=== PATIENT | male | born 1985 | race African-American/Black ===

== ENCOUNTER 2018-10-18 10:03 | Emergency (ER) | payer MEDICAID ==
[~2018-10-18] VITALS: Ht 175.3 cm; Wt 66.7 kg
[2018-10-18] MEDS ORDERED: Isovue-370 150ml vial INJ PRN (10:15)
[2018-10-18] MEDS ORDERED: DiphenhydrAMINE 50mg/ml Inj IVP ONE (10:30)
[2018-10-18] MEDS ORDERED: Ketorolac 30mg Inj IV ONE (10:30)
[2018-10-18 10:53] LABS: BASOPHILS % (AUTO) 1.3 % (0.0-2.0); EOSINOPHILS % (AUTO) 5.3 % (0.0-3.0); HEMATOCRIT 45.5 % (42.0-52.0); HEMOGLOBIN 15.2 G/DL (14.2-18.0); MEAN CORPUSCULAR VOLUME 89 FL (80-99); MONOCYTES % (AUTO) 8.6 % (1.0-10.0); NEUTROPHILS % (AUTO) 47.8 % (45.0-75.0); PLATELET COUNT 288 K/UL (150-450); RED BLOOD COUNT 5.11 M/UL (4.70-6.10); RED CELL DISTRIBUTION WIDTH 12.9 % (11.6-14.8); WHITE BLOOD COUNT 5.5 K/UL (4.8-10.8)
[2018-10-18 10:58] VITALS: BP 109/73
--- NOTE | 2018-10-18 10:58 | NUR ---
ED Nurse Note:pt. came from home with c/o headache and neck/back pain after boxes felt on him last tuesday, A/Ox4 ambulatory, VSS, blood sent to l;abs, IV fluids and meds given
[2018-10-18 11:13] LABS: ANION GAP 8 mmol/L (5-15); BLOOD UREA NITROGEN 9 mg/dL (7-18); CALCIUM 9.1 MG/DL (8.5-10.1); CARBON DIOXIDE 29 MMOL/L (21-32); CHLORIDE 102 MMOL/L (98-107); CREATININE 1.2 MG/DL (0.55-1.30); POTASSIUM 3.9 MMOL/L (3.5-5.1); SODIUM 139 MMOL/L (136-145)
[2018-10-18 11:22] LABS: ALANINE AMINOTRANSFERASE 28 U/L (12-78); ALBUMIN 3.9 G/DL (3.4-5.0); ALBUMIN/GLOBULIN RATIO 1.3 (1.0-2.7); ALKALINE PHOSPHATASE 56 U/L (46-116); ASPARTATE AMINO TRANSFERASE 30 U/L (15-37); BILIRUBIN,TOTAL 1.1 MG/DL (0.2-1.0)
--- NOTE | 2018-10-18 11:27 | NUR ---
ED Nurse Note:pt. was taken for CT scan
[2018-10-18 11:47] LABS: BILIRUBIN,DIRECT 0.2 MG/DL (0.0-0.3)
--- NOTE | 2018-10-18 12:17 | NUR ---
ED Nurse Note:pt. came back from CT scan, urine sent to labs
--- NOTE | 2018-10-18 14:12 | Diagnostic Imaging Report ---
Indication: Pain and headache Technique: Noncontrast CT of the head was performed utilizing automated exposure control. Axial, coronal and sagittal reformats are presented. Subsequently contrast was injected and CT angiogram of the head was performed utilizing automated exposure control. Axial, sagittal and coronal reconstructions were obtained. Maximal intensity projections and 3-D volumetric reconstructions were also performed. CT dose: Total DLP 5121.38 mGycm; CTDI vol 70.38,51,70.38 mGy Comparison: None FINDINGS: Noncontrast CT of the head: There is no acute intracranial hemorrhage, mass effect, midline shift or cortical edema. The ventricles, cisterns and sulci are within normal limits for age. Visualized mastoid air cells and paranasal sinuses are unremarkable. There is no depressed calvarial fracture. Sinuses are clear. Very mild paranasal sinus disease is noted with mucosal thickening and partial opacification of some bilateral ethmoid air cells. Globes appear symmetric. Imaged orbits grossly unremarkable. CT angiogram of the head: Noted that angiogram is limited due to suboptimal timing with venous contamination. The bilateral common carotid arteries and major branch vessels of the bilateral anterior and middle cerebral arteries are patent and without evidence of significant stenosis, occlusion or aneurysm. Bilateral vertebral arteries are patent and normal in caliber and without evidence of stenosis, occlusion or aneurysm. A prominent vessel is noted adjacent to portions of the basilar artery which appears to drain into the cavernous sinus and this may represent a prominent vein in the basilar plexus. IMPRESSION: Noncontrast CT head: No evidence of acute intracranial hemorrhage, mass effect, midline shift or CT evidence of acute territorial infarct. CT angiogram of the head: Angiogram limited due to suboptimal timing with venous contamination. Intracranial carotid and vertebral arteries without evidence of significant stenosis, occlusion or dissection. [place] is patent. No branch vessel significant stenosis, occlusion or aneurysm. Prominent vascular structure adjacent to portions of the basilar vein and seemingly draining into the left cavernous sinus which may represent a prominent vein in the basilar plexus. Possibility of arterial variant is not entirely excluded and follow-up either repeat CTA with better contrast timing or perhaps MR angiogram of the head can be obtained for better characterization. The CT scanner at [facility] is accredited by the [employer] and the scans are performed using protocols designed to limit radiation exposure to as low as reasonably achievable to attain images of sufficient resolution adequate for diagnostic evaluation.
--- NOTE | 2018-10-18 14:20 | Emergency Room Report ---
History of Present Illness General Chief Complaint: Headache Source: Patient Present Illness HPI The patient states that 4 days ago he was moving boxes and a large stack of heavy boxes fell onto his head. He states he did try to move and twist out of the way and felt a pull in the right side of his low back. He states that since that time he has also had a severe headache. He states it's been intolerable. He does have a history of migraines. He states that this is similar. He denies neck pain. He denies weakness. He denies tingling or numbness. He denies blurry vision. He has no other complaints. Allergies: Coded Allergies: No Known Allergies (Unverified , 10/18/18) Patient History Past Medical History: see triage record, asthma, migraines Social History: Reports: smoking, alcohol use, drug use Reviewed Nursing Documentation: PMH: Agreed; PSxH: Agreed Nursing Documentation-PM Past Medical History: No History, Except For Hx Asthma: Yes Review of Systems All Other Systems: negative except mentioned in HPI Physical Exam Vital Signs Date Time Temp Pulse Resp B/P (MAP) Pulse Ox O2 Delivery O2 Flow Rate FiO2 10/18/18 10:06 98.2 105 16 109/73 95 Room Air Sp02 EP Interpretation: reviewed, normal General Appearance: no apparent distress, alert, GCS 15, non-toxic Head: normocephalic, atraumatic Eyes: bilateral eye normal inspection, bilateral eye PERRL ENT: hearing grossly normal, normal pharynx, no angioedema, normal voice Neck: full range of motion, supple/symm/no masses Respiratory: chest non-tender, lungs clear, normal breath sounds, no respiratory distress, no retraction, no accessory muscle use, speaking full sentences Cardiovascular #1: regular rate, rhythm, no edema Gastrointestinal: normal bowel sounds, non tender, soft, non-distended, no guarding, no rebound Rectal: deferred Musculoskeletal: gait/station normal, normal range of motion, tender - TTP along the paraspinal m. of the Lumbar and T-spine on the Right. Neurologic: alert, oriented x3, responsive, motor strength/tone normal, sensory intact, speech normal Psychiatric: judgement/insight normal, memory normal, mood/affect normal, no suicidal/homicidal ideation Skin: normal color, no rash, warm/dry, well hydrated Medical Decision Making Diagnostic Impression: Primary Impression: Headache Additional Impression: Muscle spasm ER Course This patient presents with headache and muscle spasm,. He was treated as a migraine and did have significant relief of his symptoms. I was concerned about the mechanism of trauma in this patient. He had multiple heavy moving boxes fall on to his head and back. I felt that I should rule out an intracranial bleed and a vascular injury such as a vertebral artery dissection. Overall, the patient's neurologic exam was normal. I obtained a CT of the head, CTA of the brain and neck. There were no abnormalities identified. Overall, the patient's evaluation is reassuring. Migraine headache was aborted in the emergency department. I will give the patient ibuprofen and a muscle relaxant for his muscle spasm in his back. At this time, I did not identify an emergency medical condition. The patient is given close return precautions and follow-up instructions. Laboratory Tests Test 10/18/18 10:30 10/18/18 12:05 White Blood Count 5.5 K/UL (4.8-10.8) Red Blood Count 5.11 M/UL (4.70-6.10) Hemoglobin 15.2 G/DL (14.2-18.0) Hematocrit 45.5 % (42.0-52.0) Mean Corpuscular Volume 89 FL (80-99) Mean Corpuscular Hemoglobin 29.7 PG (27.0-31.0) Mean Corpuscular Hemoglobin Concent 33.3 G/DL (32.0-36.0) Red Cell Distribution Width 12.9 % (11.6-14.8) Platelet Count 288 K/UL (150-450) Mean Platelet Volume 5.9 FL (6.5-10.1) L Neutrophils (%) (Auto) 47.8 % (45.0-75.0) Lymphocytes (%) (Auto) 37.0 % (20.0-45.0) Monocytes (%) (Auto) 8.6 % (1.0-10.0) Eosinophils (%) (Auto) 5.3 % (0.0-3.0) H Basophils (%) (Auto) 1.3 % (0.0-2.0) Prothrombin Time 10.3 SEC (9.30-11.50) Prothrombin Time INR 1.0 (0.9-1.1) PTT 27 SEC (23-33) Sodium Level 139 MMOL/L (136-145) Potassium Level 3.9 MMOL/L (3.5-5.1) Chloride Level 102 MMOL/L (98-107) Carbon Dioxide Level 29 MMOL/L (21-32) Anion Gap 8 mmol/L (5-15) Blood Urea Nitrogen 9 mg/dL (7-18) Creatinine 1.2 MG/DL (0.55-1.30) Estimate Glomerular Filtration Rate > 60 mL/min (>60) Glucose Level 105 MG/DL (74-106) Calcium Level 9.1 MG/DL (8.5-10.1) Total Bilirubin 1.1 MG/DL (0.2-1.0) H Direct Bilirubin 0.2 MG/DL (0.0-0.3) Aspartate Amino Transferase (AST) 30 U/L (15-37) Alanine Aminotransferase (ALT) 28 U/L (12-78) Alkaline Phosphatase 56 U/L (46-116) Total Protein 7.0 G/DL (6.4-8.2) Albumin 3.9 G/DL (3.4-5.0) Globulin 3.1 g/dL Albumin/Globulin Ratio 1.3 (1.0-2.7) Urine Opiates Screen Negative (NEGATIVE) Urine Barbiturates Screen Negative (NEGATIVE) Phencyclidine (PCP) Screen Negative (NEGATIVE) Urine Amphetamines Screen Positive (NEGATIVE) H Urine Benzodiazepines Screen Negative (NEGATIVE) Urine Cocaine Screen Negative (NEGATIVE) Urine Marijuana (THC) Screen Positive (NEGATIVE) H CT/MRI/US Diagnostic Results CT/MRI/US Diagnostic Results : Imaging Test Ordered: CT head, CTA brain, CTA neck, CT c-spine Impression No acute abnormalities identified. Please see official reports in electronic medical record. Last Vital Signs Date Time Temp Pulse Resp B/P (MAP) Pulse Ox O2 Delivery O2 Flow Rate FiO2 10/18/18 11:27 98.2 10/18/18 10:58 103 16 109/73 95 Room Air Status: improved Disposition: HOME, SELF-CARE Condition: Improved Referrals: [facility],REFERR[facility] (PCP) Patient Instructions: Migraine Headache Jen Caldwell DO Oct 18, 2018 14:20
--- NOTE | 2018-10-18 14:33 | Diagnostic Imaging Report ---
Indication: Pain status post injury Technique: CT of the thecal spine was performed utilizing automated exposure control. Axial and coronal images were generated. Images were reformatted from the CT angiogram of the neck and therefore there is intravenous contrast present. CT dose (combined dose for all CT studies closed: Total DLP 5121 mGycm; CTDI vol 0.2, 0.2, 70.4, 16.5, 115.5, 51, 70.4 mGy Comparison: None Findings: There is nonspecific straightening of the cervical lordosis. There is no evidence of spondylolisthesis. No acute cervical spine fracture is identified. There is minimal discogenic degenerative changes small disc osteophyte that T1-T2. There is no focus of significant central canal stenosis or significant bony foraminal narrowing. There is no prevertebral fluid collection. Thyroid is unremarkable. Imaged lung apices demonstrate minimal emphysematous changes. Mastoid air cells and visualized paranasal sinuses are clear. IMPRESSION: No evidence of acute cervical spine fracture or evidence to suggest traumatic malalignment The CT scanner at [facility] is accredited by the [employer] and the scans are performed using protocols designed to limit radiation exposure to as low as reasonably achievable to attain images of sufficient resolution adequate for diagnostic evaluation.
[2018-10-18] MEDS ORDERED: CYCLOBENZAPRINE10 MG ORAL (14:40)
[2018-10-18] MEDS ORDERED: IBUPROFEN800 MG ORAL (14:40)
--- NOTE | 2018-10-18 14:41 | Diagnostic Imaging Report ---
Indication: Pain and headache Technique: CT angiogram of the neck was performed utilizing automated exposure control and IV contrast injection. Axial, sagittal and coronal reconstructions were obtained. Maximal intensity projections and 3-D volumetric reconstructions were also performed. CT dose (combined dose for all CT studies closed: Total DLP 5121 mGycm; CTDI vol 0.2, 0.2, 70.4, 16.5, 115.5, 51, 70.4 mGy Comparison: None FINDINGS: Angiogram is limited due to suboptimal timing of image acquisition with venous contamination. Within these limitations: Imaged portions of the thoracic aorta are normal in caliber. There is no significant atherosclerotic calcification. The origins of the great vessels are patent. Bilateral subclavian arteries are patent and normal in caliber. Bilateral vertebral arteries are patent, normal in caliber without evidence of significant stenosis, occlusion or dissection. Right brachiocephalic artery is widely patent. Imaged portions of the bilateral common carotid arteries are patent, normal in caliber and without evidence of significant stenosis, occlusion or dissection. No significant atherosclerotic disease noted at the carotid bifurcations bilaterally. Bilateral internal carotid arteries are patent, normal in caliber and without evidence of significant stenosis, occlusion or dissection. Imaged brain pulmonary artery is normal in caliber. No large saddle pulmonary embolism is identified. Opacified left-sided central venous structures are patent. Thyroid is normal in appearance. Minimal emphysematous changes noted in the lung apices. No focal airspace consolidation, pleural effusion or pneumothorax. No prevertebral soft tissue abnormality is identified. The airway is widely patent. No acute osseous abnormality is identified. There is opacities with some mucosal thickening in the bilateral maxillary sinuses and some ethmoid air cells. Mastoid air cells are clear. IMPRESSION: Angiogram is limited due to suboptimal timing resulting in venous contamination. Within these limitations: Bilateral internal carotid and vertebral arteries are patent, normal in caliber and without evidence of significant stenosis, occlusion or dissection. Mild paranasal sinus disease. Minimal emphysematous changes noted in the lung apices. The CT scanner at [facility] is accredited by the [employer] and the scans are performed using protocols designed to limit radiation exposure to as low as reasonably achievable to attain images of sufficient resolution adequate for diagnostic evaluation.
[2018-10-18 14:46] VITALS: BP 113/74
[2018-10-18 14:54] VITALS: BP 113/74
--- NOTE | 2018-10-18 14:55 | NUR ---
ER DISCHARGE NOTE: Patient is cleared to be discharged per ERMD, pt is aox4, on room air, with stable vital signs. pt was given dc and prescription instructions, pt was able to verbalize understanding, pt id band and iv site removed without complications. pt is able to ambulate with steady gait. pt took all belongings.
== END 2018-10-18 14:55 | disposition home or self-care (01) ==
LOC: EMR 10:41
DX: R51 Headache (principal); M62.838 Other muscle spasm; J45.909 Unspecified asthma, uncomplicated; F17.200 Nicotine dependence, unspecified, uncomplicated; F19.10 Other psychoactive substance abuse, uncomplicated; M54.2 Cervicalgia
CPT/HCPCS: 36415; 70496; 70498; 72125; 80053; 80307; 82248; 85025; 85610; 85730; 96361; 96374; 96375; 99284; J0780; J1200; J1885; Q9967

== ENCOUNTER 2020-06-26 14:14 | Emergency (ER) | payer MEDICAID ==
[~2020-06-26] VITALS: Ht 180.3 cm; Wt 68.0 kg
[~2020-06-26 14:14] MED LIST: CYCLOBENZAPRINE10 MG ORAL; IBUPROFEN800 MG ORAL
--- NOTE | 2020-06-26 14:50 | NUR ---
ED Nurse Note: walked in to ed c/o abscess on back of neck x4days. vss, nad, aaox4, ambulatory, erpa at [facility]
[2020-06-26 14:52] VITALS: BP 110/70
--- NOTE | 2020-06-26 15:28 | Emergency Room Report ---
History of Present Illness General Chief Complaint: Skin Rash/Abscess Source: Patient Present Illness HPI 34-year-old male with no signal past medical history here complaining of an abscess posterior neck x1 week. Denies any fever and chills. Denies any trauma. Denies feeling nauseated, headache and dizziness. Has not taken medication for symptom relief. Is up-to-date with tetanus shot. Denies any neck stiffness. Has full range of motion of neck. Allergies: Coded Allergies: No Known Allergies (Unverified , 10/18/18) COVID-19 Screening Contact w/high risk pt: No Experienced COVID-19 symptoms?: No COVID-19 Testing performed OUTSIDE [employer] ACCOUNT EXECUTIVE: No Patient History Past Medical History: see triage record Past Surgical History: none Pertinent Family History: none Immunizations: UTD Reviewed Nursing Documentation: PMH: Agreed; PSxH: Agreed Nursing Documentation-PMH Past Medical History: No Stated History Hx Asthma: Yes Review of Systems All Other Systems: negative except mentioned in HPI Physical Exam Vital Signs Date Time Temp Pulse Resp B/P (MAP) Pulse Ox O2 Delivery O2 Flow Rate FiO2 06/26/20 14:48 97.9 78 18 110/70 (83) 98 Room Air Sp02 EP Interpretation: reviewed, normal General Appearance: no apparent distress, alert, GCS 15, non-toxic Head: normocephalic, atraumatic Eyes: bilateral eye normal inspection, bilateral eye PERRL ENT: hearing grossly normal, normal pharynx, no angioedema, normal voice Neck: full range of motion, supple/symm/no masses Respiratory: chest non-tender, lungs clear, normal breath sounds, speaking full sentences Cardiovascular #1: regular rate, rhythm, no edema Cardiovascular #2: 2+ carotid (R), 2+ carotid (L), 2+ radial (R), 2+ radial (L), 2+ dorsalis pedis (R), 2+ dorsalis pedis (L) Gastrointestinal: normal bowel sounds, non tender, soft, non-distended, no guarding, no rebound Rectal: deferred Genitourinary: no CVA tenderness Musculoskeletal: back normal Neurologic: alert, motor strength/tone normal, oriented x3, sensory intact, responsive, speech normal Psychiatric: judgement/insight normal, memory normal, mood/affect normal, no suicidal/homicidal ideation Skin: other - Abscess posterior neck Lymphatic: no adenopathy Procedures Incision and Drainage Incision and Drainage : Consent: Verbal Site: Posterior neck Blade Size: 11 I & D Procedure: betadine prep Wound Location: neck - Posterior Wound's Depth, Shape: superficial Anesthesia: 1% Lidocaine Splint Applied?: No Sling Applied?: No Patient Tolerated: Well Complications: None Medical Decision Making PA Attestation All diagnoses and treatment plans were reviewed and discussed with my supervising physician Dr. Angel Diagnostic Impression: Primary Impression: Abscess, neck ER Course 34-year-old male with no signal past medical history here complaining of an abscess posterior neck x1 week. Denies any fever and chills. Denies any trauma. Denies feeling nauseated, headache and dizziness. Has not taken medication for symptom relief. Is up-to-date with tetanus shot. Denies any neck stiffness. Has full range of motion of neck. Ddx considered but are not limited to : Cellulitis, superficial infection, abscess Vital signs: are WNL, pt. is afebrile H&PE are most consistent with: Abscess posterior neck ORDERS: Bactrim DS, Keflex, ibuprofen ED INTERVENTIONS: Incision and drainage DISCHARGE: At this time pt. is stable for d/c to home. Will provide printed patient care instructions, and any necessary prescriptions. Care plan and follow up instructions have been discussed with the patient prior to discharge. Patient take medication as directed, follow primary care provider, if worsening symptom return to the emergency room Last Vital Signs Date Time Temp Pulse Resp B/P (MAP) Pulse Ox O2 Delivery O2 Flow Rate FiO2 06/26/20 14:52 97.9 18 110/70 98 Room Air 06/26/20 14:48 78 Disposition: HOME, SELF-CARE Condition: Stable Scripts Ibuprofen (Ibu) 800 Mg Tablet 800 MG PO TID, #30 TAB Prov: Dwain Rodriguez 06/26/20 Cephalexin* (KEFLEX*) 500 Mg Capsule 500 MG ORAL EVERY 6 HOURS for 7 Days, #28 CAP Prov: Dwain Rodriguez 06/26/20 Trimethoprim/Sulfamethoxazole 160/800* (BACTRIM DS TABLET*) 1 Each Tablet 1 TAB ORAL TWICE A DAY for 7 Days, #14 TAB Prov: Dwain Rodriguez 06/26/20 Patient Instructions: Abscess Additional Instructions: Take medication as directed, follow-up with your primary care provider, if worsening symptoms return to the emergency room Dwain Rodriguez Jun 26, 2020 15:28
[2020-06-26] MEDS ORDERED: CEPHALEXIN500 MG ORAL (15:29)
[2020-06-26] MEDS ORDERED: BACTRIM DS TAB1 EAC1 ORAL (15:29)
[2020-06-26] MEDS ORDERED: IBU800 MG PO (15:29)
[2020-06-26 15:30] VITALS: BP 132/76
--- NOTE | 2020-06-26 15:30 | NUR ---
ER DISCHARGE NOTE: Patient is cleared to be discharged per ERMD, pt is aox4, on room air, with stable vital signs. pt was given dc and prescription instructions, pt was able to verbalize understanding, pt id band removed without complications. pt is able to ambulate with steady gait. pt took all belongings.
== END 2020-06-26 15:30 | disposition home or self-care (01) ==
LOC: EMR 15:00
DX: L02.11 Cutaneous abscess of neck (principal); J45.909 Unspecified asthma, uncomplicated
CPT/HCPCS: 10060; Z7502; 99282